=== PATIENT | male | born 1955 | race Caucasian/White ===

== ENCOUNTER → 2017-01-09 | Outpatient (CLI) | payer OTHER | LOC: BMCIMAGING 14:35 | PROVIDERS: ATTEND Internal Medicine | DX: Z13.828 Encounter for screening for other musculoskeletal disorder (principal) ==

== ENCOUNTER → 2017-01-22 | Outpatient (CLI) | payer OTHER | LOC: CIMAGING 09:40 | PROVIDERS: ATTEND Internal Medicine | DX: D17.9 Benign lipomatous neoplasm, unspecified (principal) | CPT/HCPCS: 70450-PO ==

== ENCOUNTER → 2017-03-09 | Day surgery (SDC) | payer OTHER ==
[~2017-03-09] MED LIST: ACETAMINOPHEN 500 MG TAB PO PRN; BUPIVACAINE 0.5% 30 ML SDV ONE; BUPIVACAINE/EPI 0.5% 30 ML SDV ONE; DEXAMETHASONE 4 MG/ML VIAL IVP PRN; HYDROCODONE/APAP 5/325 TAB PO PRN; HYDROmorphONE/DILAUDID 1 MG/ML SYR IVP PRN; LABETALOL HCL 50 MG/10 ML SYR IVP PRN; LIDO/EPI 1% **for epidural** 30 ML SDV ONE; LR 500 ML IV PRN; MEPERIDINE 25 MG/ML SYR IVP PRN; METOCLOPRAMIDE 10 MG/2 ML VIAL IVP PRN; NALOXONE HCL 0.4 MG/ML INJ IVP PRN; ONDANSETRON 4 MG/2 ML VIAL IVP PRN; PROMETHAZINE HCL 25 MG/ML INJ IVP PRN; PROPOFOL 200 MG/20 ML VIAL ONE; SODIUM BICARBONATE 10 MEQ/10 ML SYR IVP ONE; THROMBIN (BOVINE) 20,000 UNIT SPRAY TP ONE; fentaNYL 100 MCG/2 ML INJ IVP PRN; fentaNYL 100 MCG/2 ML INJ ONE
--- NOTE | 2017-03-09 14:32 | PDANEPAE ---
ANE History of Present Illness 61 y/o male with Left scalp hematoma for evacuation. No prior issues with anesthesia. ANE Past Medical History - Cardiovascular History Hx Hypertension: No Hx Arrhythmias: No Hx Chest Pain: No Hx Coronary Artery / Peripheral Vascular Disease: No Hx CHF / Valvular Disease: No Hx Palpitations: No - Pulmonary History Hx COPD: No Hx Asthma/Reactive Airway Disease: No Hx Recent Upper Respiratory Infection: No Hx Oxygen in Use at Home: No Hx Sleep Apnea: No ANE Review of Systems Review of systems is: negative ANE Patient History - Allergies Allergies/Adverse Reactions: No Known Allergies Allergy (Unverified 03/09/17 13:26) - NPO status NPO Since - Liquids (Date): 03/08/17 NPO Since - Liquids (Time): 22:00 NPO Since - Solids (Date): 03/08/17 NPO Since - Solids (Time): 22:00 ANE Labs/Vital Signs - Vital Signs Blood Pressure: 146/91 Heart Rate: 71 Respiratory Rate: 16 O2 Sat (%): 96 ANE Physical Exam - Airway Mallampati Score: Class 1 Mouth exam: normal dental/mouth exam - Pulmonary Pulmonary: no respiratory distress - Cardiovascular Cardiovascular: regular rate and rhythym - ASA Status ASA Status: I ANE Anesthesia Plan Anesthesia Plan: GA w LMA
[2017-03-09 15:07] VITALS: RESP 16; O2SAT 100
[2017-03-09 15:20] VITALS: TEMP 96.4
[2017-03-09 15:31] VITALS: PULSE 71
[2017-03-09 15:40] VITALS: BP 121/79
--- NOTE | 2017-03-12 18:14 | GOP ---
[f rep st] OPERATIVE REPORT DATE OF OPERATION: 03/09/2017 SURGEON: Oleg Castaneda MD ANESTHESIA: Laryngeal mask anesthesia. ANESTHESIOLOGIST: Lorenza Amin MD PREOPERATIVE DIAGNOSIS: Left scalp/forehead hematoma. POSTOPERATIVE DIAGNOSIS: Left scalp/forehead hematoma. PROCEDURE PERFORMED: Evacuation of left scalp hematoma and ligation of bleeding vessel. FINDINGS: The patient had a single bleeding vessel that was ligated. ESTIMATED BLOOD LOSS: 20 cc of old blood. INDICATIONS: A 61-year-old male, status post excision of left forehead/scalp mass. The patient dev eloped significant bleeding postoperatively. The patient returned for definitive treatment. Risks and benefits of the procedure were discussed with the patient, questions were answered, and he wishe d to proceed. DESCRIPTION OF PROCEDURE: Patient was in supine position. After induction of adequate laryngeal ma sk anesthesia, the patient was prepped and draped in standard surgical fashion. 0.5% Marcaine was i njected at the area of incision for local anesthesia. The incision was reopened with a #15 blade an d carried down to the subcutaneous tissue with Bovie cautery and blunt dissection. A significant am ount of old blood clot was evacuated. An area of bleeding vessel was identified. This was clamped, and then ligated using 3-0 Vicryl stick tie. The area was inspected and small bleeding areas were cauterized. They area was then thoroughly irrigated and aspirated. After thorough examination, goo d hemostasis was noted. No other lesions were identified. The subcutaneous tissue was approximated in layers using 3-0 Vicryl in an interrupted fashion. Skin was closed with 4-0 Monocryl in a subcu ticular stitch. Wound was sterilely dressed, the patient was extubated and taken to PACU in stable condition. /[id number]/MODL
== END | disposition home or self-care (01) ==
LOC: FSGY 13:30
PROVIDERS: ATTEND Surgery
PROC: 0J900ZZ Drainage of Scalp Subcutaneous Tissue and Fascia, Open Approach (ICD-10-PCS; principal; 2017-03-09 13:30)
DX: L76.32 Postprocedural hematoma of skin and subcutaneous tissue following other procedure (principal); K21.0 Gastro-esophageal reflux disease with esophagitis
CPT/HCPCS: J2704; J3010

== ENCOUNTER → 2018-11-19 | Outpatient (CLI) | payer OTHER | LOC: BMCIMAGING 16:13 | PROVIDERS: ATTEND Family Medicine | DX: N43.3 Hydrocele, unspecified (principal); N45.3 Epididymo-orchitis ==